=== PATIENT | male | born 1990 | race Hispanic/Latino ===

== ENCOUNTER 2024-05-03 18:52 | Emergency (ER) | payer OTHER, SELFPAY ==
[2024-05-03 18:52] VITALS: BP 127/83; PULSE 80; RESP 14; TEMP 36.6; O2SAT 97; BMI 29.2
--- NOTE | 2024-05-03 19:04 | EX.ED.DYSGE1 ---
HPI History of Present Illness Chief Complaint: Rash Informant: patient Onset/Context/Timing Onset: Days (4 days) Context: Gradual Onset Narrative Narrative: Patient presents secondary to poison stacey. He was exposed to poison stacey on Tuesday and has a rash to both arms, neck, upper chest, and face. Patient states he put hot water on his arms yesterday and now his right arm is swollen. PFSH PFSH Medical History no medical history no medical history Home Medications ?Medication ?Instructions ?Recorded ?Last Taken ?Type diphenhydramine HCl 50 mg tablet 50 mg PO TID PRN rash #14 tabs 05/03/24 Unknown Rx (Benadryl Allergy) prednisone 20 mg tablet 40 mg (2 x 20 mg) PO DAILY #8 tabs 05/03/24 Unknown Rx Allergy/AdvReac Type Severity Reaction Status Date / Time No Known Allergies Allergy Verified 05/03/24 18:53 ROS ROS ED Constitutional Constitutional ED: Denies chills or fever(s) Eyes Eyes: Denies discharge from eye(s) ENT ENT ED: Denies discharge from eye(s), rhinorrhea or sore throat Cardiovascular Cardiovascular: Denies chest pain Respiratory/Chest Respiratory/Chest: Denies cough or dyspnea Gastrointestinal Gastrointestinal: Denies abdominal pain Musculoskeletal Musculoskeletal: Reports extremity pain; Denies back pain Integumentary Reports rash; Denies Abrasions Neurologic Neurologic: Denies headache(s) or weakness Psychiatric Psychiatric: Denies anxiety or depression Allergic/Immunologic Allergic/Immunologic ED: Denies lip swelling or urticaria EXAM Physical Exam Const Vital Signs: 05/03/24 18:52 Temperature 98 F Temperature Source Temporal Pulse Rate 80 Respiratory Rate 14 Blood Pressure 127/83 H Blood Pressure Mean 97 Pulse Ox 97 Oxygen Delivery Method Room Air Positive well nourished and well developed General Appearance ED: well developed HEENT Reports moist mucous membranes Eyes EOMs intact bilaterally Chest Wall inspection of chest normal and palpation of chest normal Resp normal respiratory effort and clear to auscultation bilaterally Cardio regular rate and regular rhythm GI non-tender Palpation: soft Neuro oriented x3 Skin Skin Narrative: Contact dermatitis rash noted over the upper extremities, neck, upper chest, and face. No sign of secondary bacterial infection at this time. Right upper extremity slightly more edematous than the left. MDM MDM MDM Narrative Medical decision making narrative: Patient will be given a dose of prednisone here. He will be given prescriptions for prednisone and Benadryl. He did drive himself to the emergency room so will not be given a dose of Benadryl at this time. Patient referred to local PCP to establish primary care. Return instructions given. Discharge Plan Triage Chief Complaint: Rash ED Provider: Melody Talamantes Dx/Rx/DC Orders Clinical Impression: Contact dermatitis due to poison stacey Instructions: ED Contact Dermatitis, ED Poison Stacey or Poison [place] Rash Prescriptions: New prednisone 20 mg tablet 40 mg PO DAILY Qty: 8 0RF Benadryl Allergy 50 mg tablet 50 mg PO TID PRN (Reason: rash) Qty: 14 0RF Print Language: Welsh Disposition Disposition: Home, Self Care
[2024-05-03] MEDS: predniSONE 20 MG Tablet 60 MG PO (19:21)
[2024-05-03 19:27] VITALS: BP 125/72; PULSE 80; RESP 16; TEMP 36.3; O2SAT 98
== END 2024-05-03 19:29 | disposition home or self-care (01) ==
LOC: ED 19:18
PROVIDERS: Emergency Provider Emergency Medicine; Visit Provider Emergency Medicine
DX: L24.7 Irritant contact dermatitis due to plants, except food (principal)
CPT/HCPCS: 99282